=== PATIENT | male | born 1990 | race Asian ===

== ENCOUNTER 2017-12-06 21:08 | Emergency (ER) | payer SELFPAY ==
[~2017-12-06] VITALS: Ht 175.3 cm; Wt 91.6 kg
[2017-12-06 21:26] VITALS: BP 148/90
== END 2017-12-07 01:05 | disposition home or self-care (01) ==
LOC: ED 21:08
DX: S01.111A Laceration without foreign body of right eyelid and periocular area, initial encounter (principal); W26.8XXA Contact with other sharp object(s), not elsewhere classified, initial encounter; Y93.89 Activity, other specified; Y92.89 Other specified places as the place of occurrence of the external cause; Y99.8 Other external cause status
CPT/HCPCS: 90715; J2001

== ENCOUNTER 2017-12-08 22:16 | Emergency (ER) | payer SELFPAY ==
[~2017-12-08] VITALS: Ht 175.3 cm; Wt 92.1 kg
[2017-12-08 22:23] VITALS: BP 132/74; Ht 175.3 cm; Wt 92.1 kg
== END 2017-12-08 22:40 | disposition home or self-care (01) ==
LOC: ED 22:16
DX: S01.111D Laceration without foreign body of right eyelid and periocular area, subsequent encounter (principal); X58.XXXD Exposure to other specified factors, subsequent encounter